=== PATIENT | male | born 1960 | race Caucasian/White ===

== ENCOUNTER → 2016-08-19 | Outpatient (CLI) | payer MEDICARE ==
[~2016-08-19] MED LIST: AMLODIPINE10 MG PO; ATENOLOL50 MG PO; COLCRYS0.6 MG PO; COUMADIN 1 MG TA1 MG PO; COUMADIN 10MG T10 MG PO; COUMADIN 5MG TAB5 MG PO; DOXYCYCLINE100 M1 PO; FLEXERIL10 MG OR; GABAPENTIN100 M1 PO; GABAPENTIN300 MG PO; GLIMEPIRIDE 2MG2 MG PO; HYDROCODONE 7.51 TAB PO; INDOCIN SR75 MG PO; LIPITOR20 MG PO; LIPITOR40 M1 PO; LORTAB 5/500 501 TAB PO; MEDROL 4MG. DOSE4 MG PO; NOMEDS *; NOMEDS XX; NORCO 325 MG-51 TAB PO; ONGLYZA2.5 MG PO; POTASSIUM CHLO20 ME2 PO; PREDNISONE 20MG20 MG PO; SPIRIVA HA1 PUFF/INH INH; ULORIC40 MG PO; ZITHROMAX Z PA250 MG PO
--- NOTE | 2016-08-19 13:03 | RADIOLOGY REPORT PS360 ---
HIP RT 2-3V W/PELVIS IF PERFOR ORDERING PHYSICIAN : Salena Porras APRN PATIENT AGE: 56 years GENDER: Male INDICATION: RT HIP PAIN TECHNIQUE: AP frog-leg view right hip with AP pelvis COMPARISON: No hip studies. 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 Noting The right external iliac reconstituted from internal pelvic vessels FINDINGS Postsurgical changes at right groin and left groin reflecting previous vascular surgery most likely. The right hip is intact with no fracture evident. The femoral head and neck are intact. Trochanteric region intact. The right hip joint space is intact with only borderline narrowing superiorly and both right and left superior hip joint space. The sacrum is intact. IMPRESSION: Right hip intact. No fracture. 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
--- NOTE | 2016-08-19 13:03 | RADIOLOGY REPORT PS360 ---
HIP RT 2-3V W/PELVIS IF PERFOR ORDERING PHYSICIAN : Salena Porras APRN PATIENT AGE: 56 years GENDER: Male INDICATION: RT HIP PAIN TECHNIQUE: AP frog-leg view right hip with AP pelvis COMPARISON: No hip studies. 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 Noting The right external iliac reconstituted from internal pelvic vessels FINDINGS Postsurgical changes at right groin and left groin reflecting previous vascular surgery most likely. The right hip is intact with no fracture evident. The femoral head and neck are intact. Trochanteric region intact. The right hip joint space is intact with only borderline narrowing superiorly and both right and left superior hip joint space. The sacrum is intact. IMPRESSION: Right hip intact. No fracture. 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
== END ==
LOC: RAD 10:02
DX: M25.551 Pain in right hip (principal)